=== PATIENT | male | born 1985 | race African-American/Black ===

== ENCOUNTER 2022-07-07 10:43 | Inpatient (IN) | payer SELFPAY ==
[~2022-07-07] VITALS: Ht 177.8 cm; Wt 147.4 kg
[2022-07-07] MEDS ORDERED: NALOXONE HCL 1 MG/ML 2ML VIAL IV ONE ×3 (11:00→11:45)
[2022-07-07] MEDS ORDERED: ONDANSETRON HCL 4MG/2ML INJ IV ONE (11:00)
[2022-07-07] MEDS ORDERED: SODIUM CHLORIDE 0.9% 1,000 ML IV ONE (11:00)
[2022-07-07 11:15] LABS: BASOPHILS % 1.3 % (0.0-2.0); EOSINOPHILS % 4.2 % (0.0-5.0); HEMATOCRIT. 39.9 % (42.0-52.0); HEMOGLOBIN. 12.7 g/dL (14.0-18.0); LYMPHOCYTES % 37.4 % (20.0-50.0); MEAN CORPUSCULAR HEMOGLOBIN 23.2 pg (28.0-32.0); MEAN CORPUSCULAR VOLUME 72.9 fL (80.0-94.0); MEAN PLATELET VOLUME 8.5 fl (7.4-10.4); MONOCYTES % 9.6 % (2.0-8.0); NEUTROPHILS % 47.5 % (40.0-76.0); PLATELET 312 x1000/uL (130-400); RED BLOOD CELL COUNT 5.48 mill/uL (4.7-6.1); RED CELL DISTRIBUTION WIDTH 15.9 % (11.6-14.6)
[2022-07-07] MEDS ORDERED: NALOXONE HCL 1 MG/ML 2ML VIAL IM ONE (11:15)
[2022-07-07 11:25] LABS: CHLORIDE 102 mEq/L (98-107)
[2022-07-07 11:32] LABS: ETHANOL BLOOD 241 mg/dL
[2022-07-07 11:40] LABS: CLARITY URINE CLEAR (CLEAR); COLOR URINE YELLOW (YELLOW); KETONES URINE NEGATIVE (NEGATIVE); LEUKOCYTE ESTERASE URINE NEGATIVE (NEGATIVE); NITRITE URINE NEGATIVE (NEGATIVE); OCCULT BLOOD URINE NEGATIVE (NEGATIVE); PROTEIN URINE TRACE (NEGATIVE)
[2022-07-07] MEDS ORDERED: KCL 20MEQ/100ML PREMIX 100 ML IV ONE (11:45)
[2022-07-07] MEDS ORDERED: NALOXONE 8 MG in DEXT 5% WATER 242 ML IV PRN ×2 (11:45)
[2022-07-07] MEDS ORDERED: POTASSIUM CHLORIDE INJ 40 MEQ in DEXT 5% WATER 250 ML IV ONE (12:00)
[2022-07-07] MEDS ORDERED: FOLIC ACID 1 MG, THIAMINE HCL 100 MG, MVI, ADULT NO.1 10 ML in DEXTROSE 5% WATER 1,000 ML IV ONE ×4 (12:00)
[2022-07-07] MEDS ORDERED: POTASSIUM CHLORIDE 20MEQ TABLET SR PO ONE (12:00)
[2022-07-07] MEDS: KCL 20MEQ/100ML X 2 FOR TOTAL KCL 40MEQ/200ML IV SCH ×2 (12:00→20:25)
[2022-07-07 12:05] LABS: BG BASE EXCESS -2.3 mmol/L (-2.0-2.0); BG CARBOXYHEMOGLOBIN 1.9 % (0.5-1.5); BG DEOXYHEMOGLOBIN 10.5 % (0.0-5.0); BG FRACTION INSPIRED OXYGEN 21; BG HCO3 ACT 24.5 mmol/L (22.0-26.0); BG METHEMOGLOBIN 0.4 % (0.0-1.5); BG OXYGEN SATURATION 89.3 % (92.0-98.5); BG OXYHEMOGLOBIN 87.2 % (94.0-97.0); BG PCO2 49.8 mmHg (35.0-45.0); BG PH 7.309 (7.350-7.450); BG PO2 64.7 mmHg (75.0-100.0); BG SAMPLE SITE RIGHT RADIAL; BG TOTAL HEMOGLOBIN 13.8 g/dL (12.0-18.0); BG VENT MODE ROOM AIR
[2022-07-07 12:12] LABS: *AMPHETAMINES SCREEN URINE NEGATIVE (NEGATIVE); *BARBITURATES SCREEN URINE NEGATIVE (NEGATIVE); *BENZODIAZEPINES SCREEN URINE NEGATIVE (NEGATIVE); *COCAINE SCREEN URINE PRESUMTIVE POSITIVE (NEGATIVE); CANNABINOID URINE SCREEN NEGATIVE (NEGATIVE); METHADONE URINE SCREEN NEGATIVE (NEGATIVE); OPIATES URINE SCREEN NEGATIVE (NEGATIVE); PHENCYCLIDINE URINE SCREEN NEGATIVE (NEGATIVE)
[2022-07-07] MEDS ORDERED: POTASSIUM CHLORIDE 20MEQ TABLET SR PO SCH (13:30)
[2022-07-07] MEDS ORDERED: IPRATROPIUM/ALBUTEROL 0.5-3(2.5)MG/3ML NEB HHN PRN (15:45)
[2022-07-08 04:07] LABS: BASOPHILS % 0.7 % (0.0-2.0); EOSINOPHILS % 0.5 % (0.0-5.0); HEMATOCRIT. 36.9 % (42.0-52.0); HEMOGLOBIN. 11.9 g/dL (14.0-18.0); LYMPHOCYTES % 18.1 % (20.0-50.0); MEAN CORPUSCULAR HEMOGLOBIN 23.1 pg (28.0-32.0); MEAN CORPUSCULAR VOLUME 71.6 fL (80.0-94.0); MEAN PLATELET VOLUME 8.5 fl (7.4-10.4); NEUTROPHILS % 72.7 % (40.0-76.0); PLATELET 261 x1000/uL (130-400); RED BLOOD CELL COUNT 5.16 mill/uL (4.7-6.1); RED CELL DISTRIBUTION WIDTH 16.2 % (11.6-14.6)
[2022-07-08 04:17] LABS: CHLORIDE 102 mEq/L (98-107)
[2022-07-08] MEDS ORDERED: HYDROCHLOROTHIAZIDE 25MG TABLET PO SCH (10:00)
[2022-07-08 12:00] VITALS: BP 165/88
[2022-07-08 14:00] VITALS: BP 165/88
[2022-07-08] MEDS ORDERED: METF-414 MT (15:36)
[2022-07-08] MEDS ORDERED: HYDR12.54 MT (15:36)
[2022-07-08 16:00] VITALS: BP 145/102
[2022-07-08] MEDS: AMLODIPINE 10MG TABLET PO SCH (17:18)
[2022-07-08 20:00] VITALS: BP 155/90
[2022-07-09] VITALS: BP 149/87
[2022-07-09 04:00] VITALS: BP 145/80
[2022-07-09 08:00] VITALS: BP 151/66
[2022-07-09] MEDS: AMLODIPINE 10MG TABLET PO SCH (08:41)
[2022-07-09] MEDS ORDERED: HYDROCHLOROTHIAZIDE 25MG TABLET PO SCH (09:00)
[2022-07-09 11:09] VITALS: BP 151/66
== END 2022-07-09 11:20 | disposition home or self-care (01) | DRG 816 ==
LOC: ER 10:43 → EDBEDREQ 11:41 → EDBEDREQTM 11:41 → EDBEDREQSVC 17:46 → MICUSO 07-08 00:10 → 7WST 07-08 13:23
PROVIDERS: ADMIT Internal Medicine; ATTEND Internal Medicine
PROC: 5A0935A Assistance with Respiratory Ventilation, Less than 24 Consecutive Hours, High Flow/Velocity Cannula (ICD-10-PCS; principal; 2022-07-07)
DX: T40.5X1A Poisoning by cocaine, accidental (unintentional), initial encounter (principal); J96.01 Acute respiratory failure with hypoxia; E66.9 Obesity, unspecified; E87.6 Hypokalemia; F10.129 Alcohol abuse with intoxication, unspecified; F14.90 Cocaine use, unspecified, uncomplicated; F17.210 Nicotine dependence, cigarettes, uncomplicated; G47.33 Obstructive sleep apnea (adult) (pediatric); I10 Essential (primary) hypertension; T40.601A Poisoning by unspecified narcotics, accidental (unintentional), initial encounter; Y90.8 Blood alcohol level of 240 mg/100 ml or more; Y92.89 Other specified places as the place of occurrence of the external cause; Z68.42 Body mass index [BMI] 45.0-49.9, adult; Z71.51 Drug abuse counseling and surveillance of drug abuser
CPT/HCPCS: 36415; 36600; 71045; 80048; 80053; 80305; 80307; 80320; 80329; 81003; 82375; 82805; 83880; 84484; 85025; 93005; 99285; J2310; J2405; J3411; J3480; J3490; J7030; J7060; J7070; G0480